=== PATIENT | female | born 1945 | race Caucasian/White ===

== ENCOUNTER → 2016-06-27 | Outpatient (CLI) | payer MEDICARE, OTHER ==
--- NOTE | 2016-06-27 19:22 | Diagnostic Imaging Report ---
Examination: DEXA scan. Indication: Osteopenia. Technique: Bone mineral density estimated based on dual energy radiography over the lumbar spine and femoral necks, was performed. Findings: The lumbar spine T-score is -1.9. This is a 7.4% decreased density measurement compared to 2003 exam. T-score over the right femoral neck is -1.4 and on the left is -1.8. This is 5% decreased density measurement compared to 2013. Impression: Osteopenia. Dictated by: Dictated on workstation # [id number]
--- NOTE | 2016-06-28 08:22 | Diagnostic Imaging Report ---
Bilateral screening mammogram. The current study was also evaluated with a Computer Aided Detection (CAD) system. INDICATION: Screening. No current complaints stated on the questionnaire. COMPARISON: 06/23/2015. FINDINGS: The breasts are composed of scattered fibroglandular densities. There are occasional benign-appearing calcifications. Allowing for technique and positional differences, no suspicious change is seen. IMPRESSION: No significant change. ACR BI-RADS Category 2: Benign findings. Result letter will be mailed to the patient. Note: At least 10% of breast cancer is not imaged by mammography. Dictated by: Dictated on workstation # [id number]
== END ==
LOC: RAD 11:06
PROVIDERS: ATTEND Nurse Practitioner Family
DX: Z12.31 Encounter for screening mammogram for malignant neoplasm of breast (principal); M85.89 Other specified disorders of bone density and structure, multiple sites
CPT/HCPCS: 77067; 77080

== ENCOUNTER → 2017-07-07 | Outpatient (CLI) | payer MEDICARE, OTHER ==
--- NOTE | 2017-07-07 13:39 | Diagnostic Imaging Report ---
Indication: Routine screening. Comparison: Made to prior exam from 06/27/2016 and 06/23/2015. Findings: Scattered fibroglandular densities are identified bilaterally. An ovoid circumscribed density in the outer portion of the right breast anterior depth appears stable and most consistent with benign etiology. There are scattered benign calcifications. No spiculated mass or malignant appearing microcalcifications are identified. The axillae are unremarkable. Impression: BI-RADS category 2 No mammographic features suspicious for malignancy are identified. ACR BI-RADS Category 2: Benign findings. Result letter will be mailed to the patient. Note: At least 10% of breast cancer is not imaged by mammography. Dictated by: Dictated on workstation # [id number]
== END ==
LOC: RAD 10:44
PROVIDERS: ATTEND Internal Medicine
DX: Z12.31 Encounter for screening mammogram for malignant neoplasm of breast (principal)
CPT/HCPCS: 77067

== ENCOUNTER → 2018-12-08 | Outpatient (CLI) | payer MEDICARE, OTHER ==
--- NOTE | 2018-12-08 12:22 | Diagnostic Imaging Report ---
INDICATION: Screening for osteoporosis. COMPARISON: 06/27/2016 FINDINGS: The bone mineral density of the hips and spine was measured. The T score for the spine is -2.1. On the prior exam of 06/27/2016 the T score is -1.9. The total T score for the left hip is -2.0 and for the right hip -1.7. On the prior exam the respective T scores were -1.8 and -1.4. The T-scores for the femoral necks were not obtained on the prior study. On the current exam the T score for the left femoral neck is -1.2 and for the right femoral neck -1.6. AP Spine L1-L4: [BMD (g/cm2): 0.948] [T-Score: -2.1] [Z-Score: -0.6] [BMD Previous: 0.976] [BMD % Change: -2.9] LT Hip Neck: [BMD (g/cm2): 0.867] [T-Score: -1.2] [Z-Score: 0.4] LT Hip Total: [BMD (g/cm2):0.754] [T-Score:-2.0] [Z-Score: -0.6] [BMD Previous: 0.784] [BMD % Change: -3.8] RT Hip Neck: [BMD (g/cm2):0.812] [T-Score:-1.6] [Z-Score:0.0] RT Hip Total: [BMD (g/cm2):0.794] [T-score:-1.7] [Z-Score:-0.3] [BMD Previous:0.835] [BMD % Change:-4.9] *Indicates significant change from prior examination based on 95% confidence level. World Health Organization criteria for BMD interpretation classify patients as Normal (T-score at or above -1.0), Osteopenic (T-score between -1.0 and -2.5) or Osteoporotic (T-score at or below -2.5). LIMITATIONS AND MODIFICATION: None. FRACTURE RISK (FRAX SCORE): The ten year probability of (%): Major Osteoporotic Fracture: [10.9] Hip Fracture: [1.9] IMPRESSION: 1. There has been a slight decrease in the bone mineral density of the hips and spine in the interval since the prior exam. 2. All the T-scores for the spine, the hips and the femoral necks fall within the range of osteopenia. 3. See below National Osteoporosis Foundation guidelines on when to potentially initiate pharmacologic therapy. Based on the National Osteoporosis Foundation Guidelines, pharmacologic treatment should be initiated in any of the following, unless clinical conditions suggest otherwise: * Any patient with prior fragility fracture of the hip or vertebrae. A spine fracture indicates 5X risk for subsequent spine fracture and 2X risk for subsequent hip fracture. * Osteoporosis (T-score <-2.5). * Postmenopausal women and men age 50 and older with low bone mass/osteopenia (T-score between -1.0 and -2.5) by DXA and 10-year major osteoporotic fracture greater than 20% or a 10-year probability of hip fracture greater than 3%. These fracture risks are supplied above in the FRAX score, if applicable. * Clinician judgement and/or patient preferences may indicate treatment for people with 10-year fracture probabilities above or below these levels. Dictated by: Dictated on workstation # [id number]
== END ==
LOC: RAD 11:09
PROVIDERS: ATTEND Internal Medicine
DX: Z13.820 Encounter for screening for osteoporosis (principal); M81.0 Age-related osteoporosis without current pathological fracture
CPT/HCPCS: 77080

== ENCOUNTER → 2022-05-24 | Outpatient (CLI) | payer MEDICARE, OTHER ==
[~2022-05-24] VITALS: Ht 162 cm; Wt 69.0 kg
[~2022-05-24] MED LIST: CATHETER FLUSH 10 ML SYR IVP PRN
[2022-05-24 08:20] VITALS: BP 154/83
--- NOTE | 2022-05-24 09:53 | Cardiology Stress Test Report ---
Stress Test Report Date of Procedure/Referring: Date of Procedure: May 24, 2022 PCP Denilson Lal DO Admitting Physician Admitting Physician: Attending Physician: Denilson Lal DO Baseline Vital Signs Vital Signs Date Time Temp Pulse Resp B/P (MAP) Pulse Ox O2 Delivery O2 Flow Rate FiO2 05/24/22 08:20 56 154/83 (106) Summary: Patient receive a resting and stress dose of Myoview, images were acquired and reviewed in the short axis view, horizontal long axis view and vertical long axis view. TID: 0.77 SSS: 7 SDS: 2 EF: 79 Breast attenuation with mild decrease uptake at the basal to mid anteroseptum with mild reversibility most probably due to breast attenuation, overall no significant ischemia or infarction on SPECT images Normal left ventricular size, EF 79% Copy Copies To 1: DENILSON LAL BASHAR J MD May 24, 2022 09:53
== END ==
LOC: CARD 07:00
PROVIDERS: ATTEND Internal Medicine
DX: R53.83 Other fatigue (principal)
CPT/HCPCS: 78452; 93017; A9502